=== PATIENT | male | born 1990 | race African-American/Black ===

== ENCOUNTER 2018-12-07 05:10 | Emergency (ER) | payer MEDICAID ==
[~2018-12-07] VITALS: Ht 172.7 cm; Wt 73.9 kg
[2018-12-07 05:21] VITALS: BP 135/86
--- NOTE | 2018-12-07 05:24 | NUR ---
pt ambulated to bed 4 with vss.
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
[2018-12-07] MEDS ORDERED: BACITRACIN OINT 500 UNITS/GM PKT TP ONE (06:10)
[2018-12-07] MEDS ORDERED: IBUPROFEN 800 MG TAB PO ONE (06:10)
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
[2018-12-07 06:29] VITALS: BP 135/86
--- NOTE | 2018-12-07 06:31 | NUR ---
Patient discharged with v/s stable. Written and verbal after care instructions given and explained. Patient alert, oriented and verbalized understanding of instructions. Ambulatory with steady gait. All questions addressed prior to discharge. ID band removed. Patient advised to follow up with PMD. Rx of MOTRIN, BACITRACIN given. Patient educated on indication of medication including possible reaction and side effects. Opportunity to ask questions provided and answered.
== END 2018-12-07 06:29 | disposition home or self-care (01) ==
LOC: MED 05:10
DX: T21.11XA Burn of first degree of chest wall, initial encounter (principal); X11.8XXA Contact with other hot tap-water, initial encounter; Y93.89 Activity, other specified; Y92.89 Other specified places as the place of occurrence of the external cause; Y99.8 Other external cause status
CPT/HCPCS: 16000; 99284

== ENCOUNTER 2018-12-24 00:24 | Emergency (ER) | payer MEDICAID ==
[~2018-12-24] VITALS: Ht 172.7 cm; Wt 73.9 kg
[2018-12-24 00:30] VITALS: BP 132/95
[2018-12-24] MEDS ORDERED: BACITRACIN OINT 500 UNITS/GM PKT TP ONE (00:45)
[2018-12-24] MEDS ORDERED: KETOROLAC 30 MG/ML VIAL IM ONE (00:45)
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
--- NOTE | 2018-12-24 01:50 | NUR ---
Note vonone in EDM - 12/24/18 at 0305 by KEYLA Patient discharged with v/s stable. Written and verbal after care instructions given and explained. Patient alert, oriented and verbalized understanding of instructions. Ambulatory with steady gait. All questions addressed prior to discharge. ID band removed. Patient advised to follow up with PMD. Rx of NAPROSYN, BACITRACIN AND TYLENOL WITH CODEINE given. Patient educated on indication of medication including possible reaction and side effects. Opportunity to ask questions provided and answered.
[2018-12-24 02:04] VITALS: BP 132/95
--- NOTE | 2018-12-24 02:04 | NUR ---
Patient discharged with v/s stable. Written and verbal after care instructions given and explained. Patient verbalized understanding. Ambulatory with steady gait. All questions addressed prior to discharge. Advised to follow up with PMD.
== END 2018-12-24 02:04 | disposition home or self-care (01) ==
LOC: MED 00:24
DX: S91.331A Puncture wound without foreign body, right foot, initial encounter (principal); J02.8 Acute pharyngitis due to other specified organisms; B97.89 Other viral agents as the cause of diseases classified elsewhere; W26.0XXA Contact with knife, initial encounter; Y93.89 Activity, other specified; Y92.89 Other specified places as the place of occurrence of the external cause; Y99.8 Other external cause status
CPT/HCPCS: 87081; 90471; 90715; 96372; 99283; J1885